=== PATIENT | female | born 1970 | race Caucasian/White ===

== ENCOUNTER 2016-05-03 17:35 | Emergency (ER) | payer OTHER ==
[~2016-05-03] VITALS: Ht 152.4 cm; Wt 100.0 kg
[~2016-05-03 17:35] MED LIST: ADIPEX-P37.5 M1 PO; CIPRO500 MG OR; COZAAR50 MG PO; DIFLUCAN150 MG PO; GLUCOTROL XL2.5 MG PO; IMITREX100 MG PO; IMITREX25 MG PO; INVOKANA300 MG PO; LIPITOR20 MG PO; NITROGLYCER0.4 MG SL; NO MEDICATIONS; PYRIDIUM200 MG OR; TOPAMAX25 MG PO; TRICOR48 MG PO; ULTRAM50 M1 PO; WELLBUTRIN150 M1 PO; XANAX0.25 MG PO; XANAX0.5 MG OR; XANAX1 MG PO
[2016-05-03 19:12] VITALS: BP 126/85
== END 2016-05-03 19:13 | disposition home or self-care (01) | DRG 552 ==
LOC: ED 17:35
DX: M54.31 Sciatica, right side (principal); R25.2 Cramp and spasm

== ENCOUNTER 2017-03-30 09:45 | Observation (INO) | payer OTHER ==
[~2017-03-30] VITALS: Ht 152.4 cm; Wt 94.9 kg
--- NOTE | 2017-03-30 09:45 | NUR ---
PT TO ROOM 12 VIA EMS [facility]. PT REQUESTS TO USE BATHROOM, PT REFUSED WHEELCHAIR AND BEDSIDE COMMODE. PT AMBULATED TO BATHROOM WITH A STEADY GAIT.
--- NOTE | 2017-03-30 10:00 | NUR ---
PT REPORTS SUDDEN ONSET OF MIDSTERNAL CHEST PAIN THAT RADIATES TO THE MID BACK. PT REPORTS DIZZINESS AND NAUSEA WITH THE CHEST PAIN. 0.4 MG SL NITRO AND 324 MG OF ASA GIVEN ENROUTE VIA EMS AND PER PT PAIN IS NOW A 4/10. MONITOR SHOWING NORMAL SINUS RHYTHM AT 78 BPM AT THIS TIME. LS CLEAR AND PT RESTING COMFORTABLY IN STRETCHER. PT HAS HX OF AAA, NO ABD TENDERNESS OR PULSATIONS NOTED TO THE ABD. MD AT BEDSIDE, CALL PETE WITHIN REACH, WILL CONTINUE TO MONITOR.
[2017-03-30 10:25] LABS: HEMOGLOBIN 13.8 g/dl (12.0-16.0); IMMATURE GRANULOCYTES 0.9 % (0.0-1.0); MEAN CELL VOLUME 86.3 fL CALC (80.0-100.0); MEAN CORPUSCULAR HGB 29.1 pG CALC (26.0-32.0); MEAN CORPUSCULAR HGB CONC 33.7 g/L CALC (32.0-36.0); NEUT# 5.55 thou/uL (2.00-7.15); RED BLOOD COUNT 4.75 mill/uL (4.20-5.60); RED CELL DISTRI WIDTH 12.5 % (11.5-15.5)
[2017-03-30 10:28] LABS: URINE BILIRUBIN - DIPSTICK NEGATIVE (NEGATIVE); URINE BLOOD DIPSTICK NEGATIVE (NEGATIVE); URINE COLOR YELLOW; URINE GLUCOSE - DIPSTICK >=1000 mg/dL (NEGATIVE); URINE KETONE NEGATIVE (NEGATIVE); URINE LEUK ESTERASE NEGATIVE (NEGATIVE); URINE NITRITE - DIPSTICK NEGATIVE (Negative); URINE PROTEIN - DIPSTICK NEGATIVE (NEG-TRACE); URINE SPECIFIC GRAVITY 1.015; URINE UROBILINOGEN - DIPSTICK 0.2 E.U./dL (0.2)
[2017-03-30 10:33] LABS: ALBUMIN 4.2 g/dL (3.2-5.0); ALKALINE PHOSPHATASE 95 u/l (38-126); ANION GAP 16 (6-22 (CALC)); BILIRUBIN, TOTAL 0.7 mg/dL (0.0-1.4); BUN 14 mg/dL (7-17); BUN/CREATININE RATIO 23 (12-20 (CALC)); CARBON DIOXIDE 22 mmol/l (22-30); CHLORIDE 107 mmol/l (95-108); CREATININE 0.6 mg/dL (0.5-1.0); GFR > 60 ML/MIN (>=60 (CALC)); GFR FOR AFR.AMER. > 60 ML/MIN (>=60 (CALC)); POTASSIUM 4.1 mmol/l (3.5-5.1); SGOT/AST 28 u/l (14-36); SGPT/ALT 19 u/l (9-52); SODIUM 141 mmol/l (137-146); TOTAL PROTEIN 7.6 g/dL (6.3-8.2)
[2017-03-30 10:34] LABS: URINE CLARITY CLEAR
[2017-03-30 10:44] LABS: MYOGLOBIN 24 ng/mL (0 - 62)
--- NOTE | 2017-03-30 10:48 | NUR ---
PT MEDICATED WITH 2 MG OF MORPHINE FOR 6/10 STABBING CHEST PAIN IN THE MIDSTERNAL AREA. CALL PETE WITHIN REACH, FAMILY AT BEDSIDE.
--- NOTE | 2017-03-30 10:54 | NUR ---
SBAR PRINTED TO FLOOR
--- NOTE | 2017-03-30 10:56 | NUR ---
MD AT BEDSIDE TO DISCUSS RESULTS AND ADMISSION.
--- NOTE | 2017-03-30 11:15 | NUR ---
REPORT CALLED TO CARMEN SHELL ON MS.
[2017-03-30] MEDS ORDERED: VYVANSE70 MG PO (11:18)
[2017-03-30] MEDS ORDERED: TRICOR145 MG PO (11:19)
[2017-03-30] MEDS ORDERED: TRESIBA FL200 UNIT/M SC (11:20)
[2017-03-30] MEDS ORDERED: PROZAC10 MG PO (11:21)
[2017-03-30] MEDS ORDERED: NAPROXEN250 MG PO (11:22)
[2017-03-30] MEDS ORDERED: LOSARTAN POTASS50 MG PO (11:23)
[2017-03-30] MEDS ORDERED: KLOR-CON 1010 MEQ PO (11:25)
[2017-03-30] MEDS ORDERED: LASIX 40 MG40 MG/TAB PO (11:25)
[2017-03-30] MEDS ORDERED: INVOKANA300 MG PO (11:26)
[2017-03-30] MEDS ORDERED: DIFLUCAN150 MG PO (11:27)
--- NOTE | 2017-03-30 11:30 | NUR ---
Admission Note Report Given to: CARMEN SHELL Transported by: X Wheelchair Stretcher Transported with: X Nurse Transporter X Patent IV O2 X Linux System Engineer
--- NOTE | 2017-03-30 11:40 | NUR ---
PT.ARRIVED TO FLOOR AND APPEARS TO BE IN STABLE CONDITION AT THIS TIME. SERENA PAYNE IS IN WITH PT ORIENTING HER TO LIGHTS,ROOM,BED,CALL SYSTEM AND TV. V/S ARE BEING ASSESSED. FAMILY ACCOMPANIED PT TO FLOOR AND ARE AT BEDSIDE.
[2017-03-30 11:49] VITALS: BP 143/84
--- NOTE | 2017-03-30 13:04 | NUR ---
PT.IN BED W/FRIENDS AT BEDSIDE. PT.ASSESSED. LUNG SOUNDS ARE CLEAR, ABD.SOFT AND NON-TENDER, SKIN INTACT, NO EDEMA, REPORTS BM YESTERDAY AND NO PROBLEMS URINATING. DENIES ANY NAUSEA OR VOMITING AT THIS TIME, REPORTS PAIN 3/10 CONSTANT IN LEFT CHEST AND ONCE IN A WHILE SHARP PAIN 7/10 STRAIGHT THRU TO BACK. PT.IS TALKING WITH FRIENDS AND DENIES ANY OTHER NEEDS AT THIS TIME.
--- NOTE | 2017-03-30 15:00 | NUR ---
PT.ARRIVED TO FLOOR VIA ACCOMPANIED BY CARMEN DORADO OF ED. PT.APPEARS TO BE IN STABLE CONDITION AT THIS TIME. V/S ARE BEING [id number] AND PT. ORIENTED TO ROOM,CALL SYSTEM,LIGHTS, BED AND TV. PT.SELF AMUBLATED TO STANDING SCALE AND BED.
[2017-03-30 15:12] LABS: CHOLESTEROL HDL RATIO 6.3 (<4.4 (CALC))
[2017-03-30 15:23] VITALS: BP 111/70
--- NOTE | 2017-03-30 16:54 | NUR ---
Patient felt pain underneath left breast. BINDER ROLLER was informed. C
--- NOTE | 2017-03-30 17:15 | NUR ---
PT.MEDICATED FOR PAIN 04/24 CONSTAND 08/24 SHARP SPIRADIC PAIN UNDER LEFT BREAST IS AT BEDSIDE AT THIS TIME. CALL LIGHT IS W/IN REACH AND PT.ENCOURAGED TO CALL
[2017-03-30 18:30] VITALS: BP 103/68
--- NOTE | 2017-03-30 18:35 | NUR ---
PT.MEDICATED FOR PAIN 08/24.
[2017-03-30 18:40] VITALS: BP 103/68
--- NOTE | 2017-03-30 18:43 | NUR ---
ARMANDO BUSH NOTIFIED OF 08/24 PAIN UNDER LEFT BREAST, MEDICATED W/MORPHINE, XANAX AND EKG ORDERED. RESPIRATORY IS IN WITH PT.AT THIS TIME. BP 103/68,HR73.
--- NOTE | 2017-03-30 19:30 | NUR ---
PATIENT RESTING IN BED AT THIS TIME-AWAKE ALERT AND ORIENTEDX3. PATIENT STATES THAT HER PAIN SCALE IS 2/10 ON PAIN SCALE AFTER RECIEVING MORPHINE AND XANAX ON DAYSHIFT. HEP LOCK TO LEFT AC INTACT-APPEARS HEALTHY WITH GOOD BLOOD RETURN. PATIENT ON CONTACT PRECAUTIONS FOR HISTORY OF MRSA-SWAB ALREADY OBTAINED. SAFETY PRECAUTIONS REINFORCED. CALL LIGHT IN REACH. WILL CONT TO MONITOR.
--- NOTE | 2017-03-31 | NUR ---
PATIENT APPEARS SLEEPING AT THIS TIME POSITIONED ON HER SIDE WITH EYES CLOSED. RESTING IN RECLINER AT THIS TIME. CALL LIGHT IN REACH. WILL CONT TO MONITOR.
[2017-03-31 00:14] VITALS: BP 98/62
[2017-03-31 03:48] VITALS: BP 93/55
--- NOTE | 2017-03-31 04:10 | NUR ---
PATIENT APPEARS SLEEPING AT THIS TIME. CALL LIGHT IN REACH. WILL CONT TO MONITOR.
[2017-03-31 06:55] LABS: HEMATOCRIT 39.2 % (37.0-47.0); HEMOGLOBIN 13.2 g/dl (12.0-16.0); IMMATURE GRANULOCYTES 0.8 % (0.0-1.0); MEAN CELL VOLUME 86.7 fL CALC (80.0-100.0); MEAN CORPUSCULAR HGB 29.2 pG CALC (26.0-32.0); MEAN CORPUSCULAR HGB CONC 33.7 g/L CALC (32.0-36.0); NEUT# 4.73 thou/uL (2.00-7.15); RED BLOOD COUNT 4.52 mill/uL (4.20-5.60); RED CELL DISTRI WIDTH 12.4 % (11.5-15.5)
--- NOTE | 2017-03-31 07:00 | NUR ---
SHIFT CHANGE REPORT FROM TEJ YEE AWAKE ALERT AND ORIENTED, DENIES PAIN AT THIS TIME, TELE MONITOR IN PLACE, CALL PETE IN REACH. SPOUSE AT BEDSIDE.
[2017-03-31 07:16] LABS: ANION GAP 15 (6-22 (CALC)); BUN 18 mg/dL (7-17); BUN/CREATININE RATIO 27 (12-20 (CALC)); CARBON DIOXIDE 24 mmol/l (22-30); CHLORIDE 105 mmol/l (95-108); CREATININE 0.7 mg/dL (0.5-1.0); GFR > 60 ML/MIN (>=60 (CALC)); GFR FOR AFR.AMER. > 60 ML/MIN (>=60 (CALC)); MAGNESIUM 2.1 mg/dL (1.6-2.3); SODIUM 140 mmol/l (137-146)
[2017-03-31 08:58] VITALS: BP 110/62; BP 114/49
[2017-03-31 10:31] VITALS: BP 106/68
--- NOTE | 2017-03-31 11:32 | NUR ---
Discharge instructions given. Patient verbalizes understanding of same. Discharged in good condition via Ambulatory to Home with spouse. All belongings sent with pt.
== END 2017-03-31 11:40 | disposition home or self-care (01) | DRG 313 ==
LOC: ED 09:45 → ED-I 10:40 → ED 11:00 → MS2 11:01
PROVIDERS: Emergency Medicine; Nurse Practitioner Family; ADMIT Internal Medicine; ATTEND Internal Medicine
DX: R07.89 Other chest pain (principal); I10 Essential (primary) hypertension; E11.65 Type 2 diabetes mellitus with hyperglycemia; Z68.41 Body mass index [BMI] 40.0-44.9, adult; F32.9 Major depressive disorder, single episode, unspecified; I71.4 Abdominal aortic aneurysm, without rupture; F41.1 Generalized anxiety disorder; F17.210 Nicotine dependence, cigarettes, uncomplicated; Z91.14 Patient's other noncompliance with medication regimen; Z79.84 Long term (current) use of oral hypoglycemic drugs
CPT/HCPCS: G0378

== ENCOUNTER 2017-10-13 04:59 | Emergency (ER) | payer OTHER ==
[~2017-10-13] VITALS: Ht 157.5 cm; Wt 97.8 kg
[~2017-10-13 04:59] MED LIST changes: +KLOR-CON 1010 MEQ PO; +LASIX 40 MG40 MG/TAB PO; +LOSARTAN POTASS50 MG PO; +NAPROXEN250 MG PO; +PROZAC10 MG PO; +TRESIBA FL200 UNIT/M SC; +TRICOR145 MG PO; +VYVANSE70 MG PO
[2017-10-13] MEDS ORDERED: ATIVAN1 M1 PO (05:10)
[2017-10-13 05:44] VITALS: BP 146/97
== END 2017-10-13 05:46 | disposition home or self-care (01) | DRG 639 ==
LOC: ED 04:59
DX: E11.65 Type 2 diabetes mellitus with hyperglycemia (principal); I10 Essential (primary) hypertension; F32.9 Major depressive disorder, single episode, unspecified; I71.4 Abdominal aortic aneurysm, without rupture; Z85.038 Personal history of other malignant neoplasm of large intestine

== ENCOUNTER 2018-02-21 11:02 | Observation (INO) | payer OTHER ==
[~2018-02-21] VITALS: Ht 152.4 cm; Wt 96.4 kg
[2018-02-21] VITALS (9 sets, daily range): BP systolic 124–171; BP diastolic 82–101
[~2018-02-21 11:02] MED LIST changes: +ATIVAN1 M1 PO
--- NOTE | 2018-02-21 11:05 | NUR ---
PATIENT TO ROOM VIA WHEELCHAIR.
[2018-02-21 11:41] LABS: HEMATOCRIT 38.6 % (37.0-47.0); HEMOGLOBIN 13.4 g/dl (12.0-16.0); IMMATURE GRANULOCYTES 2.8 % (0.0-5.0); MEAN CELL VOLUME 88.5 fL CALC (80.0-100.0); MEAN CORPUSCULAR HGB 30.7 pG CALC (26.0-32.0); MEAN CORPUSCULAR HGB CONC 34.7 g/L CALC (32.0-36.0); NEUT# 4.36 thou/uL (2.00-7.15); RED BLOOD COUNT 4.36 mill/uL (4.20-5.60); RED CELL DISTRI WIDTH 13.9 % (11.5-15.5)
[2018-02-21 11:51] LABS: GFR > 60 ML/MIN (>=60 (CALC)); GFR FOR AFR.AMER. > 60 ML/MIN (>=60 (CALC))
[2018-02-21 12:00] LABS: ANION GAP 15 (6-22 (CALC)); BUN 10 mg/dL (7-17); BUN/CREATININE RATIO 24 (12-20 (CALC)); CARBON DIOXIDE 21 mmol/l (22-30); CHLORIDE 103 mmol/l (95-108); CREATININE 0.4 mg/dL (0.5-1.0); GFR > 60 ML/MIN (>=60 (CALC)); GFR FOR AFR.AMER. > 60 ML/MIN (>=60 (CALC)); POTASSIUM 4.1 mmol/l (3.5-5.1); SODIUM 135 mmol/l (137-146)
--- NOTE | 2018-02-21 12:00 | NUR ---
PT TO RADIOLOGY VIA STRETCHER FOR CT. STABLE CONDITION.
--- NOTE | 2018-02-21 13:30 | NUR ---
PT TAKEN TO ROOM 7 IN ICU OVERFLOW PT, REPORT WAS TO [facility].
[2018-02-21] MEDS ORDERED: GABAPENTIN100 MG PO (13:39)
[2018-02-21] MEDS ORDERED: COMPAZINE5 MG/TAB PO (13:39)
[2018-02-21] MEDS ORDERED: HUMALOG100 MG/ML SC (13:40)
--- NOTE | 2018-02-21 13:55 | NUR ---
PT ADMITTED TO ICU BED 7 MED SURG OVERFLOW TELE, PT ALERT AND ORIENTED, STOOD OFF STRECTHER AND AMBULATED WITH STEADY GAIT TO BED, ADMISSION ASSESSMENT COMPLETED, SEE INTERVENTIONS, BP SLIGHTLY ELEVATED PT STATES SHE HAS HAD A MIGRAINE FOR A FEW DAYS NOW. TELE READING SR RATE IN THE 80'S LUNGS CLEAR WITH NO SHORTNESS OF BREATH OR DISTRESS NOTED, ABD SOFT LAST BM THIS AM, IMPLANTED PORT ACCESSED IN R CHEST WALL SALINE LOCKED AND DRESSING CLEAN DRY AND INTACT, PT STATES SHE HAS HAD HEARTBURN LIKE PAIN FOR 3 DAYS THIS AM IT RADIATED DOWN ARM AND SINCE SHE HAS AN AAA SHE WANTS TO BE CAREFUL, ALSO STATES THAT THE SL NITRO GIVEN TO HER IN ER RESOLVED THE PAIN, ORIENTED TO ROOM AND UNIT, ALL MONITORING EQUIPMENT EXPLAINED PRIOR APPLICATION, CALL PETE WITHIN REACH, WILL CONTINUE TO MONITOR.
--- NOTE | 2018-02-21 15:46 | NUR ---
PT C/O HEADACHE SINCE YESTERDAY. DENIES CP AT THIS TIME. STATES SHE HASN'T "EATEN AT ALL TODAY". TRAY ORDERED FROM [place]. 2 FREJAIMES @BEDSIDE WITH PT. A FRIEND IS LOOKING ALL OVER ROOM CHECKING ROOM FOR CLEANLINESS. ABD SOFT/NONTENDER, ACTIVE BS. DENIES N/V/D. "NORMAL" BM TODAY. STRONG PULSES x4. NSR ON TELE. BARAJAS. EYES PERRLA @4. NO NEURO ABNORMALITIES. BREATHING IS EVEN/UNLABORED, LUNG SOUNDS CLEAR.
--- NOTE | 2018-02-21 15:54 | NUR ---
DR PINK @BEDSIDE ASSESSING PT.
--- NOTE | 2018-02-21 16:01 | NUR ---
2 MORE VISITORS @BEDSIDE. PT SITTING UP IN BED, EATING TRAY FROM [place]. PT STATES SHE HAS A SMALL SORE FROM A SCRATCH ON HER UPPER BACK. BANDAID PLACED ON SORE. NO OTHER NEEDS/CONCERNS AT THIS TIME.
--- NOTE | 2018-02-21 17:27 | NUR ---
PT HAS HER DIABETIC SCANNER WITH HER, REQUEST TO USE IT INSTEAD OF BEING POKED BY ACCUCHECK. PERFORMED ACCUCHECK AT SAME TIME PT SCANNED HER PATCH. PT GOT 241 WITH HER SCANNER, I GOT 243 WITH OUR ACCUCHECK. AGREED TO LET PT SCAN HER PATCH FOR ACCUCHECKS SINCE #S ARE VERY CLOSE. PT GIVEN 4u COVERAGE. PT WILL BE RESPONSIBLE FOR HER SCANNER.
--- NOTE | 2018-02-21 19:40 | NUR ---
ASSESSMENT IS COMPLETED: IV SITE IS FREE FROM REDNESS OR EDEMA. HR IS REG,PULSES ARE STRONG X4, ABD IS SOFT WITH ACTIVE BS. BREATH SOUNDS ARE CLEAR, BILATERALLY. CONTINUE TO OBSERVE AND MONITOR.
--- NOTE | 2018-02-21 23:00 | NUR ---
PT IS RELAXING IN BED WITH NO DISTRESS NOTED. IV SITE IS FREE FROM REDNESS OR EDEMA.
--- NOTE | 2018-02-21 23:41 | NUR ---
PT RELAXING IN BED WITH NO DISTRESS NOTED. IV SITE IS FREE FROM REDNESS OR EDEMA. FAMILY IN THE ROOM CONTINUE TO OSBERVE AND MONITOR,
[2018-02-22 01:38] VITALS: BP 127/76
--- NOTE | 2018-02-22 01:48 | NUR ---
PT IS RESTING IN BED WITH NO DISTRESS NOTED. IV SITE IS FREE FROM REDNESS OR EDEMA.
--- NOTE | 2018-02-22 02:38 | NUR ---
PT IS RESTING WITH EYES CLOSED. NO DISTRESS NOTED. FAMILY IN AND OUT OF THE ROOM.,
--- NOTE | 2018-02-22 06:20 | NUR ---
PT REQUESTING DISC TO TAKE TO [facility]. CONTINUE TO OBSERVE AND MONITOR C/O HEADACHE THIS AM. BS ACCORDING TO MONITOR ON ARM IS 359 WAITING ON LAB RESULT.
[2018-02-22 06:22] LABS: ALKALINE PHOSPHATASE 134 u/l (38-126); AMYLASE 36 u/l (30-110); ANION GAP 13 (6-22 (CALC)); BILIRUBIN, TOTAL 0.4 mg/dL (0.0-1.4); BUN 13 mg/dL (7-17); BUN/CREATININE RATIO 26 (12-20 (CALC)); CARBON DIOXIDE 22 mmol/l (22-30); CHLORIDE 104 mmol/l (95-108); CREATININE 0.5 mg/dL (0.5-1.0); GFR > 60 ML/MIN (>=60 (CALC)); GFR FOR AFR.AMER. > 60 ML/MIN (>=60 (CALC)); LIPASE 102 u/l (23-300); MAGNESIUM 1.7 mg/dL (1.6-2.3); POTASSIUM 4.5 mmol/l (3.5-5.1); SGOT/AST 30 u/l (14-36); SODIUM 134 mmol/l (137-146); TOTAL PROTEIN 6.3 g/dL (6.3-8.2)
[2018-02-22 06:24] VITALS: BP 138/70
[2018-02-22 06:32] LABS: HEMATOCRIT 35.6 % (37.0-47.0); HEMOGLOBIN 12.4 g/dl (12.0-16.0); IMMATURE GRANULOCYTES 4.5 % (0.0-5.0); MEAN CELL VOLUME 90.1 fL CALC (80.0-100.0); MEAN CORPUSCULAR HGB 31.4 pG CALC (26.0-32.0); MEAN CORPUSCULAR HGB CONC 34.8 g/L CALC (32.0-36.0); NEUT# 5.07 thou/uL (2.00-7.15); RED BLOOD COUNT 3.95 mill/uL (4.20-5.60); RED CELL DISTRI WIDTH 14.6 % (11.5-15.5)
--- NOTE | 2018-02-22 06:50 | NUR ---
REPORT RECVD FROM SKYLER FIGUEROA AT START OF SHIFT.
[2018-02-22 07:00] VITALS: BP 138/83
--- NOTE | 2018-02-22 07:24 | NUR ---
PT SLEEPING IN BED, SLEEPING IN RECLINER. NO S/S OF DISTRESS.
--- NOTE | 2018-02-22 08:09 | NUR ---
PNEUMOCOCCAL VACCINE ASSESSMENT ; PATIENT WAS GIVEN PPSV23 IN 2015 AND IS 47 YEARS OLD SHE WILL NOT REQUIRE PCV13 UNTIL SHE TURNS 65 YEARS OLD.
--- NOTE | 2018-02-22 08:30 | NUR ---
RADIOLOGY GAVE PT CD OF TESTS TO TAKE TO HER PCP. PT SIGNED WAIVER.
--- NOTE | 2018-02-22 08:35 | NUR ---
PT C/O ABOUT CARBS ON MEAL TRAYS WHEN PT IS A DIABETIC. CONCERNED ABOUT HIGH BGL. SHE IS NOT TAKING ONE OF HER DM MEDS WHILE IN HOSPITAL. WILL DISCUSS WITH MD WHEN HE ROUNDS. PT C/O NOISE IN ROOM ALL NIGHT D/T ROWDY NEIGHBOR. WORK ORDER PLACED FOR DOOR THAT WILL NOT CLOSE. PER MAINTENANCE, NEW TRACTS ORDERED. PT C/O HOT ROOM. FAN PLACED IN ROOM. 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 REQUESTS COFFEE. FRESH POT MADE. GIVEN ACCESS TO NOURISHMENT ROOM.
[2018-02-22 09:00] VITALS: BP 140/88
--- NOTE | 2018-02-22 10:10 | NUR ---
DR PINK @BEDSIDE, EXAMINING PT & DISCUSSING POC. EXAMINED PTS BUTTOCKS, SMALL RED AREA, SUSPECT OF STARTING ABCESS TO LEFT, IS TENDER TO TOUCH AND PINK/RAW AREA AROUND ANUS. MD EDUCATED ON MEDICATIONS TO HELP.
[2018-02-22] MEDS ORDERED: KEFLEX500 M1 PO (10:27)
--- NOTE | 2018-02-22 10:33 | NUR ---
HUA, UNIT COORDINATOR, @BEDSIDE DISCUSSING DIET/CARBS WITH PT/.
--- NOTE | 2018-02-22 10:55 | NUR ---
PT REQUESTED A NOTE TO RETURN TO WORK ON 02/28/18. COPY MADE FOR FILE.
[2018-02-22 11:00] VITALS: BP 141/86
--- NOTE | 2018-02-22 11:00 | NUR ---
PT UP TO BSC FOR BM UNASSISTED.
--- NOTE | 2018-02-22 11:55 | NUR ---
PT SITTING UP IN BED, EATING LUNCH. DC PENDING HUSBANDS RETURN.
--- NOTE | 2018-02-22 12:12 | NUR ---
PT/ EDUCATED ON DC INSTRUCTIONS INCLUDING F/UP CARE WITH ESCROW REPRESENTATIVE AND NEW MEDICATION SENT TO [employer]. CONCERNED ABOUT RUNNING OUT OF VIT[employer] OINTMENT, PRINTED OUT PLACES WHERE PT COULD GET MEDICINE OTC. NO OTHER QUESTIONS/CONCERNS.
--- NOTE | 2018-02-22 12:19 | NUR ---
Discharge instructions given. Patient verbalizes understanding of same. Discharged in stable condition via Ambulatory to Home with family. All belongings sent with pt. Pt refused wheelchair stating she wanted to walk, "it feels good to be oob", all belongings with pt.
== END 2018-02-22 12:19 | disposition home or self-care (01) | DRG 313 ==
LOC: ED 11:02 → ED-I 13:05 → ED 13:15 → ICU 13:16
PROVIDERS: Family Medicine; ADMIT Internal Medicine Nephrology; ATTEND Internal Medicine Nephrology
DX: R07.89 Other chest pain (principal); C18.9 Malignant neoplasm of colon, unspecified; Z68.41 Body mass index [BMI] 40.0-44.9, adult; I10 Essential (primary) hypertension; E11.40 Type 2 diabetes mellitus with diabetic neuropathy, unspecified; I71.2 Thoracic aortic aneurysm, without rupture; E78.5 Hyperlipidemia, unspecified; F41.8 Other specified anxiety disorders; E66.9 Obesity, unspecified; G89.29 Other chronic pain; R19.7 Diarrhea, unspecified; R22.2 Localized swelling, mass and lump, trunk; Z23 Encounter for immunization; Z90.49 Acquired absence of other specified parts of digestive tract; Z79.899 Other long term (current) drug therapy; Z79.1 Long term (current) use of non-steroidal anti-inflammatories (NSAID)
CPT/HCPCS: J1650

== ENCOUNTER → 2018-03-30 | Outpatient (REF) | payer OTHER ==
[~2018-03-30] MED LIST changes: +COMPAZINE5 MG/TAB PO; +GABAPENTIN100 MG PO; +HUMALOG100 MG/ML SC; +KEFLEX500 M1 PO
== END | disposition home or self-care (01) | DRG 311 ==
LOC: STRESS 11:04 → NUCMED 14:15
PROVIDERS: ATTEND Internal Medicine
DX: I20.9 Angina pectoris, unspecified (principal); E11.65 Type 2 diabetes mellitus with hyperglycemia; I10 Essential (primary) hypertension
CPT/HCPCS: A9502; J0706; J2785

== ENCOUNTER → 2018-04-05 | Outpatient (REF) | END | disposition home or self-care (01) | DRG 310 | LOC: LAB 12:35 | PROVIDERS: ATTEND Internal Medicine | DX: I48.2 Chronic atrial fibrillation (principal); I20.8 Other forms of angina pectoris ==

== ENCOUNTER 2018-07-26 10:10 | Emergency (ER) | payer OTHER ==
[~2018-07-26] VITALS: Ht 160 cm; Wt 80.0 kg
[2018-07-26 10:30] LABS: GFR > 60 ML/MIN (>=60 (CALC)); GFR FOR AFR.AMER. > 60 ML/MIN (>=60 (CALC))
[2018-07-26 10:34] LABS: HEMATOCRIT 39.5 % (37.0-47.0); HEMOGLOBIN 13.2 g/dl (12.0-16.0); IMMATURE GRANULOCYTES 1.7 % (0.0-5.0); MEAN CELL VOLUME 86.1 fL CALC (80.0-100.0); MEAN CORPUSCULAR HGB 28.8 pG CALC (26.0-32.0); MEAN CORPUSCULAR HGB CONC 33.4 g/L CALC (32.0-36.0); NEUT# 6.39 thou/uL (2.00-7.15); RED BLOOD COUNT 4.59 mill/uL (4.20-5.60); RED CELL DISTRI WIDTH 13.1 % (11.5-15.5)
[2018-07-26 10:50] LABS: INTERNATIONAL NORMALIZED RATIO 0.9 RATIO (0.7-1.3); PROTHROMBIN TIME 9.5 SECONDS (9.0-12.5)
[2018-07-26 10:52] LABS: ALKALINE PHOSPHATASE 126 u/l (38-126); ANION GAP 14 (6-22 (CALC)); BILIRUBIN, TOTAL 0.5 mg/dL (0.0-1.4); BUN 11 mg/dL (7-17); BUN/CREATININE RATIO 25 (12-20 (CALC)); CARBON DIOXIDE 22 mmol/l (22-30); CHLORIDE 106 mmol/l (95-108); CREATININE 0.4 mg/dL (0.5-1.0); GFR > 60 ML/MIN (>=60 (CALC)); GFR FOR AFR.AMER. > 60 ML/MIN (>=60 (CALC)); LIPASE 95 u/l (23-300); POTASSIUM 4.2 mmol/l (3.5-5.1); SGOT/AST 44 u/l (14-36); SODIUM 137 mmol/l (137-146); TOTAL PROTEIN 7.4 g/dL (6.3-8.2)
[2018-07-26] MEDS ORDERED: FENOFIBRATE145 MG PO (11:20)
[2018-07-26] MEDS ORDERED: JARDIANCE25 MG PO (11:20)
[2018-07-26] MEDS ORDERED: LOSARTAN POT50 MG PO (11:21)
[2018-07-26] MEDS ORDERED: FUROSEMIDE20 MG PO (11:24)
[2018-07-26] MEDS ORDERED: KLOR-CON M2020 MEQ PO (11:25)
[2018-07-26] MEDS ORDERED: L-CARNITINE250 M1 PO (11:26)
[2018-07-26] MEDS ORDERED: B COMPLE2 PO (11:26)
[2018-07-26] MEDS ORDERED: LOPRESSOR25 M1 PO (11:26)
[2018-07-26] MEDS ORDERED: ASPIRIN 8181 MG PO (11:27)
[2018-07-26 12:37] LABS: URINE BILIRUBIN - DIPSTICK NEGATIVE (NEGATIVE); URINE BLOOD DIPSTICK NEGATIVE (NEGATIVE); URINE COLOR YELLOW; URINE GLUCOSE - DIPSTICK >=1000 mg/dL (NEGATIVE); URINE KETONE NEGATIVE (NEGATIVE); URINE LEUK ESTERASE NEGATIVE (NEGATIVE); URINE NITRITE - DIPSTICK NEGATIVE (Negative); URINE PROTEIN - DIPSTICK NEGATIVE (NEG-TRACE); URINE SPECIFIC GRAVITY <=1.005; URINE UROBILINOGEN - DIPSTICK 0.2 E.U./dL (0.2)
[2018-07-26 13:54] VITALS: BP 165/79
== END 2018-07-26 14:00 | disposition home or self-care (01) | DRG 103 ==
LOC: ED 10:10
PROVIDERS: Family Medicine
DX: R51 Headache (principal); F41.9 Anxiety disorder, unspecified; E11.9 Type 2 diabetes mellitus without complications; I10 Essential (primary) hypertension; I71.4 Abdominal aortic aneurysm, without rupture; Z79.4 Long term (current) use of insulin

== ENCOUNTER 2019-06-22 | Emergency (ER) | payer OTHER ==
[~2019-06-22] MED LIST changes: +ASPIRIN 8181 MG PO; +B COMPLE2 PO; +FENOFIBRATE145 MG PO; +FUROSEMIDE20 MG PO; +JARDIANCE25 MG PO; +KLOR-CON M2020 MEQ PO; +L-CARNITINE250 M1 PO; +LOPRESSOR25 M1 PO; +LOSARTAN POT50 MG PO
[2019-06-22] MEDS ORDERED: TOUJEO SOL300 UNIT/M IN (15:34)
[2019-06-22] MEDS ORDERED: MIRALAX3350 N1 PO (15:35)
[2019-06-22] MEDS ORDERED: OMEGA 31000 MG PO (15:35)
[2019-06-22 15:41] LABS: HEMATOCRIT 39.5 % (37.0-47.0); HEMOGLOBIN 13.5 g/dl (12.0-16.0); IMMATURE GRANULOCYTES 0.5 % (0.0-5.0); MEAN CELL VOLUME 84.9 fL CALC (80.0-100.0); MEAN CORPUSCULAR HGB CONC 34.2 g/dL CAL (32.0-36.0); NEUT# 5.9 thou/uL (2.00-7.15); RED BLOOD COUNT 4.65 mill/uL (4.20-5.60); RED CELL DISTRI WIDTH 13.1 % (11.5-15.5)
[2019-06-22 16:00] LABS: ALBUMIN 4.2 g/dL (3.2-5.0); ALKALINE PHOSPHATASE 116 u/l (38-126); ANION GAP 11 (6-22 (CALC)); BILIRUBIN, TOTAL 0.4 mg/dL (0.0-1.4); BUN 17 mg/dL (7-17); BUN/CREATININE RATIO 25 (12-20 (CALC)); CARBON DIOXIDE 24 mmol/l (22-30); CHLORIDE 104 mmol/l (95-108); CREATININE 0.7 mg/dL (0.5-1.0); GFR > 60 ML/MIN (>=60 (CALC)); GFR FOR AFR.AMER. > 60 ML/MIN (>=60 (CALC)); LIPASE 98 u/l (23-300); POTASSIUM 4.4 mmol/l (3.5-5.1); SGOT/AST 19 u/l (14-36); SODIUM 135 mmol/l (137-146); TOTAL PROTEIN 7.9 g/dL (6.3-8.2)
[2019-06-22 16:19] LABS: URINE BILIRUBIN - DIPSTICK NEGATIVE (NEGATIVE); URINE BLOOD DIPSTICK NEGATIVE (NEGATIVE); URINE COLOR YELLOW; URINE GLUCOSE - DIPSTICK 100 mg/dL (NEGATIVE); URINE KETONE NEGATIVE (NEGATIVE); URINE LEUK ESTERASE NEGATIVE (NEGATIVE); URINE NITRITE - DIPSTICK NEGATIVE (Negative); URINE PH 7.5 (4.5-8.0); URINE PROTEIN - DIPSTICK NEGATIVE (NEG-TRACE); URINE UROBILINOGEN - DIPSTICK 0.2 E.U./dL (0.2)
== END 2019-06-22 17:10 | disposition home or self-care (01) | DRG 392 ==
PROVIDERS: Family Medicine
DX: R10.12 Left upper quadrant pain (principal); E11.9 Type 2 diabetes mellitus without complications; I10 Essential (primary) hypertension; Z79.4 Long term (current) use of insulin
CPT/HCPCS: Q9967

== ENCOUNTER 2019-08-23 17:40 | Emergency (ER) | payer OTHER ==
[~2019-08-23] VITALS: Ht 160 cm; Wt 80.0 kg
[~2019-08-23 17:40] MED LIST changes: +MIRALAX3350 N1 PO; +OMEGA 31000 MG PO; +TOUJEO SOL300 UNIT/M IN
[2019-08-23 18:36] LABS: HEMATOCRIT 41.7 % (37.0-47.0); HEMOGLOBIN 15.8 g/dl (12.0-16.0); IMMATURE GRANULOCYTES 1.1 % (0.0-5.0); MEAN CELL VOLUME 82.6 fL CALC (80.0-100.0); MEAN CORPUSCULAR HGB 31.3 pG CALC (26.0-32.0); MEAN CORPUSCULAR HGB CONC 37.9 g/dL CAL (32.0-36.0); NEUT# 6.19 thou/uL (2.00-7.15); RED BLOOD COUNT 5.05 mill/uL (4.20-5.60)
[2019-08-23 18:54] LABS: ALBUMIN 4.3 g/dL (3.2-5.0); ALKALINE PHOSPHATASE 156 u/l (38-126); ANION GAP 14 (6-22 (CALC)); BUN 10 mg/dL (7-17); BUN/CREATININE RATIO 26 (12-20 (CALC)); CARBON DIOXIDE 24 mmol/l (22-30); CHLORIDE 100 mmol/l (95-108); CREATININE 0.4 mg/dL (0.5-1.0); GFR > 60 ML/MIN (>=60 (CALC)); GFR FOR AFR.AMER. > 60 ML/MIN (>=60 (CALC)); HDL CHOLESTEROL 16 mg/dL (>=40); LIPASE 92 u/l (23-300); POTASSIUM 4.5 mmol/l (3.5-5.1); SGOT/AST 29 u/l (14-36); SODIUM 133 mmol/l (137-146); TOTAL CHOLESTEROL 248 mg/dl (0-199); TOTAL PROTEIN 8.7 g/dL (6.3-8.2)
[2019-08-23 19:06] LABS: BILIRUBIN, TOTAL 0.8 mg/dL (0.0-1.4)
[2019-08-23 19:07] LABS: CALCULATED LDLCHOLESTEROL 127 mg/dL (62-129 (CALC)); CHOLESTEROL HDL RATIO 15.1 (<4.4 (CALC)); TRIGLYCERIDES REFLEX TO dLDL > 525 mg/dl (30-149); VLDL CHOLESTROL 105 mg/dl (1-41 (CALC))
[2019-08-23 19:37] LABS: URINE BILIRUBIN - DIPSTICK NEGATIVE (NEGATIVE); URINE BLOOD DIPSTICK NEGATIVE (NEGATIVE); URINE COLOR YELLOW; URINE GLUCOSE - DIPSTICK >=1000 mg/dL (NEGATIVE); URINE KETONE 15 mg/dL (NEGATIVE); URINE LEUK ESTERASE NEGATIVE (NEGATIVE); URINE NITRITE - DIPSTICK NEGATIVE (Negative); URINE PROTEIN - DIPSTICK NEGATIVE (NEG-TRACE); URINE SPECIFIC GRAVITY 1.025; URINE UROBILINOGEN - DIPSTICK 0.2 E.U./dL (0.2)
[2019-08-23] MEDS ORDERED: PREVACID30 M3 PO ×2 (20:41)
[2019-08-23 20:55] VITALS: BP 140/70
== END 2019-08-23 20:55 | disposition home or self-care (01) | DRG 440 ==
LOC: ED 17:40
PROVIDERS: Family Medicine
DX: K85.90 Acute pancreatitis without necrosis or infection, unspecified (principal); E11.65 Type 2 diabetes mellitus with hyperglycemia; E78.5 Hyperlipidemia, unspecified; I10 Essential (primary) hypertension; Z85.038 Personal history of other malignant neoplasm of large intestine; Z79.4 Long term (current) use of insulin; Z92.21 Personal history of antineoplastic chemotherapy

== ENCOUNTER 2019-09-30 01:52 | Inpatient (IN) | payer OTHER ==
[2019-09-30] VITALS (9 sets, daily range): BP systolic 123–196; BP diastolic 53–96
[~2019-09-30] VITALS: Ht 152.4 cm; Wt 97.5 kg
[~2019-09-30 01:52] MED LIST changes: +PREVACID30 M3 PO
[2019-09-30 02:22] LABS: URINE BILIRUBIN - DIPSTICK NEGATIVE (NEGATIVE); URINE BLOOD DIPSTICK TRACE-INTACT (NEGATIVE); URINE COLOR YELLOW; URINE GLUCOSE - DIPSTICK 250 mg/dL (NEGATIVE); URINE KETONE TRACE mg/dL (NEGATIVE); URINE LEUK ESTERASE NEGATIVE (NEGATIVE); URINE NITRITE - DIPSTICK NEGATIVE (Negative); URINE PH 7.5 (4.5-8.0); URINE PROTEIN - DIPSTICK >=300 mg/dL (NEG-TRACE); URINE UROBILINOGEN - DIPSTICK 0.2 E.U./dL (0.2)
[2019-09-30 02:25] LABS: IMMATURE GRANULOCYTES 1.1 % (0.0-5.0); MEAN CELL VOLUME 82.7 fL CALC (80.0-100.0); NEUT# 8.68 thou/uL (2.00-7.15); RED BLOOD COUNT 4.96 mill/uL (4.20-5.60); RED CELL DISTRI WIDTH 13.2 % (11.5-15.5)
[2019-09-30 02:34] LABS: URINE RBC 0-2 RBC/hpf (0-5); URINE SQUAMOUS EPITHELIAL CELL FEW EPI/hpf (0-FEW)
[2019-09-30 02:36] LABS: AMYLASE 303 u/l (30-110); BILIRUBIN, TOTAL 0.7 mg/dL (0.0-1.4); BUN 11 mg/dL (7-17); BUN/CREATININE RATIO 20 (12-20 (CALC)); CHLORIDE 100 mmol/l (95-108); CREATININE 0.5 mg/dL (0.5-1.0); GFR > 60 ML/MIN (>=60 (CALC)); GFR FOR AFR.AMER. > 60 ML/MIN (>=60 (CALC)); POTASSIUM 4.2 mmol/l (3.5-5.1); SODIUM 130 mmol/l (137-146); TOTAL PROTEIN 7.6 g/dL (6.3-8.2)
[2019-09-30 02:41] LABS: HEMOGLOBIN 23.8 g/dl (12.0-16.0)
[2019-09-30 02:52] LABS: TOTAL CHOLESTEROL > 650 mg/dl (0-199); TRIGLYCERIDES REFLEX TO dLDL > 1575 mg/dl (30-149); VLDL CHOLESTROL 315 mg/dl (1-41 (CALC))
[2019-09-30 02:57] LABS: ALKALINE PHOSPHATASE 240 u/l (38-126); ANION GAP 17 (6-22 (CALC)); CARBON DIOXIDE 17 mmol/l (22-30); LIPASE 16813 u/l (23-300); SGOT/AST 60 u/l (14-36)
[2019-09-30 02:59] LABS: CALCULATED LDLCHOLESTEROL 321 mg/dL (62-129 (CALC)); CHOLESTEROL HDL RATIO 46.4 (<4.4 (CALC)); HDL CHOLESTEROL 14 mg/dL (>=40)
[2019-09-30 18:43] LABS: ANION GAP 13 (6-22 (CALC)); BUN 4 mg/dL (7-17); BUN/CREATININE RATIO 12 (12-20 (CALC)); CARBON DIOXIDE 15 mmol/l (22-30); CHLORIDE 104 mmol/l (95-108); CREATININE 0.4 mg/dL (0.5-1.0); GFR > 60 ML/MIN (>=60 (CALC)); GFR FOR AFR.AMER. > 60 ML/MIN (>=60 (CALC)); POTASSIUM 3.4 mmol/l (3.5-5.1); SODIUM 129 mmol/l (137-146)
[2019-10-01] VITALS (8 sets, daily range): BP systolic 104–141; BP diastolic 57–84
[2019-10-01 00:52] LABS: ANION GAP 10 (6-22 (CALC)); BUN 4 mg/dL (7-17); BUN/CREATININE RATIO 9 (12-20 (CALC)); CARBON DIOXIDE 18 mmol/l (22-30); CHLORIDE 105 mmol/l (95-108); CREATININE 0.4 mg/dL (0.5-1.0); GFR > 60 ML/MIN (>=60 (CALC)); GFR FOR AFR.AMER. > 60 ML/MIN (>=60 (CALC)); POTASSIUM 3.2 mmol/l (3.5-5.1); SODIUM 131 mmol/l (137-146)
[2019-10-01 05:23] LABS: HEMATOCRIT 37.2 % (37.0-47.0); IMMATURE GRANULOCYTES 1.4 % (0.0-5.0); MEAN CELL VOLUME 83.2 fL CALC (80.0-100.0); MEAN CORPUSCULAR HGB 32.2 pG CALC (26.0-32.0); MEAN CORPUSCULAR HGB CONC 38.7 g/dL CAL (32.0-36.0); NEUT# 15.53 thou/uL (2.00-7.15); RED BLOOD COUNT 4.47 mill/uL (4.20-5.60); RED CELL DISTRI WIDTH 13.6 % (11.5-15.5)
[2019-10-01 05:45] LABS: ALBUMIN 2.7 g/dL (3.2-5.0); ALKALINE PHOSPHATASE 122 u/l (38-126); AMYLASE 161 u/l (30-110); ANION GAP 8 (6-22 (CALC)); BILIRUBIN, TOTAL 0.8 mg/dL (0.0-1.4); BUN 4 mg/dL (7-17); BUN/CREATININE RATIO 9 (12-20 (CALC)); CARBON DIOXIDE 20 mmol/l (22-30); CHLORIDE 105 mmol/l (95-108); CREATININE 0.5 mg/dL (0.5-1.0); GFR > 60 ML/MIN (>=60 (CALC)); GFR FOR AFR.AMER. > 60 ML/MIN (>=60 (CALC)); HDL CHOLESTEROL 13 mg/dL (>=40); LIPASE 839 u/l (23-300); POTASSIUM 3.3 mmol/l (3.5-5.1); SGOT/AST 24 u/l (14-36); SODIUM 130 mmol/l (137-146)
[2019-10-01 06:03] LABS: HEMOGLOBIN 14.4 g/dl (12.0-16.0)
[2019-10-01 06:42] LABS: CHOLESTEROL HDL RATIO 18.8 (<4.4 (CALC)); TOTAL CHOLESTEROL 244 mg/dl (0-199); TOTAL PROTEIN 5.8 g/dL (6.3-8.2); TOTAL TRIGLYCERIDES > 1575 mg/dl (30-149); VLDL CHOLESTROL 315 mg/dl (1-41 (CALC))
[2019-10-01 12:40] LABS: ANION GAP 8 (6-22 (CALC)); BUN 3 mg/dL (7-17); BUN/CREATININE RATIO 7 (12-20 (CALC)); CARBON DIOXIDE 21 mmol/l (22-30); CHLORIDE 107 mmol/l (95-108); CREATININE 0.4 mg/dL (0.5-1.0); GFR > 60 ML/MIN (>=60 (CALC)); GFR FOR AFR.AMER. > 60 ML/MIN (>=60 (CALC)); POTASSIUM 3.4 mmol/l (3.5-5.1); SODIUM 133 mmol/l (137-146)
[2019-10-01 18:46] LABS: BUN 3 mg/dL (7-17); BUN/CREATININE RATIO 7 (12-20 (CALC)); CHLORIDE 111 mmol/l (95-108); CREATININE 0.4 mg/dL (0.5-1.0); GFR > 60 ML/MIN (>=60 (CALC)); GFR FOR AFR.AMER. > 60 ML/MIN (>=60 (CALC)); SODIUM 132 mmol/l (137-146)
[2019-10-01 18:52] LABS: ANION GAP 9 (6-22 (CALC)); CARBON DIOXIDE 16 mmol/l (22-30); POTASSIUM 4.1 mmol/l (3.5-5.1)
[2019-10-02] VITALS (19 sets, daily range): BP systolic 96–134; BP diastolic 52–86
[2019-10-02 04:47] LABS: HEMATOCRIT 35.2 % (37.0-47.0); IMMATURE GRANULOCYTES 1.3 % (0.0-5.0); MEAN CELL VOLUME 84.6 fL CALC (80.0-100.0); MEAN CORPUSCULAR HGB 27.9 pG CALC (26.0-32.0); NEUT# 10.72 thou/uL (2.00-7.15); RED BLOOD COUNT 4.16 mill/uL (4.20-5.60); RED CELL DISTRI WIDTH 14.4 % (11.5-15.5)
[2019-10-02 04:51] LABS: HEMOGLOBIN 11.6 g/dl (12.0-16.0)
[2019-10-02 05:05] LABS: CHOLESTEROL HDL RATIO 11.4 (<4.4 (CALC)); HDL CHOLESTEROL 20 mg/dL (>=40); TOTAL CHOLESTEROL 231 mg/dl (0-199)
[2019-10-02 05:12] LABS: VLDL CHOLESTROL 159 mg/dl (1-41 (CALC))
[2019-10-02 05:31] LABS: TOTAL TRIGLYCERIDES 796 mg/dl (30-149)
[2019-10-03] VITALS (21 sets, daily range): BP systolic 96–139; BP diastolic 58–84
[2019-10-03 08:07] LABS: HEMATOCRIT 32.2 % (37.0-47.0); HEMOGLOBIN 10.3 g/dl (12.0-16.0); IMMATURE GRANULOCYTES 0.8 % (0.0-5.0); MEAN CELL VOLUME 85.4 fL CALC (80.0-100.0); MEAN CORPUSCULAR HGB 27.3 pG CALC (26.0-32.0); NEUT# 6.48 thou/uL (2.00-7.15); RED BLOOD COUNT 3.77 mill/uL (4.20-5.60); RED CELL DISTRI WIDTH 14.5 % (11.5-15.5)
[2019-10-03 08:22] LABS: AMYLASE < 30 u/l (30-110); LIPASE 95 u/l (23-300)
[2019-10-03 08:26] LABS: ALBUMIN 2.5 g/dL (3.2-5.0); ALKALINE PHOSPHATASE 113 u/l (38-126); ANION GAP 8 (6-22 (CALC)); BILIRUBIN, TOTAL 0.9 mg/dL (0.0-1.4); BUN 5 mg/dL (7-17); BUN/CREATININE RATIO 13 (12-20 (CALC)); CHLORIDE 105 mmol/l (95-108); CREATININE 0.4 mg/dL (0.5-1.0); GFR > 60 ML/MIN (>=60 (CALC)); GFR FOR AFR.AMER. > 60 ML/MIN (>=60 (CALC)); POTASSIUM 3.3 mmol/l (3.5-5.1); SGOT/AST 37 u/l (14-36); SODIUM 133 mmol/l (137-146); TOTAL PROTEIN 5.2 g/dL (6.3-8.2)
[2019-10-03 08:27] LABS: CARBON DIOXIDE 23 mmol/l (22-30)
[2019-10-04] VITALS: BP 133/82
[2019-10-04 02:00] VITALS: BP 126/78
[2019-10-04 05:16] LABS: HEMATOCRIT 32.9 % (37.0-47.0); HEMOGLOBIN 10.3 g/dl (12.0-16.0); IMMATURE GRANULOCYTES 1.1 % (0.0-5.0); MEAN CELL VOLUME 86.4 fL CALC (80.0-100.0); MEAN CORPUSCULAR HGB CONC 31.3 g/dL CAL (32.0-36.0); NEUT# 8.13 thou/uL (2.00-7.15); RED BLOOD COUNT 3.81 mill/uL (4.20-5.60); RED CELL DISTRI WIDTH 14.6 % (11.5-15.5)
[2019-10-04 05:33] LABS: ALBUMIN 2.7 g/dL (3.2-5.0); ALKALINE PHOSPHATASE 127 u/l (38-126); BUN 14 mg/dL (7-17); BUN/CREATININE RATIO 32 (12-20 (CALC)); CALCULATED LDLCHOLESTEROL 187 mg/dL (62-129 (CALC)); CARBON DIOXIDE 22 mmol/l (22-30); CHLORIDE 105 mmol/l (95-108); CHOLESTEROL HDL RATIO 12.1 (<4.4 (CALC)); CREATININE 0.5 mg/dL (0.5-1.0); GFR > 60 ML/MIN (>=60 (CALC)); GFR FOR AFR.AMER. > 60 ML/MIN (>=60 (CALC)); HDL CHOLESTEROL 24 mg/dL (>=40); SGOT/AST 32 u/l (14-36); SODIUM 134 mmol/l (137-146); TOTAL CHOLESTEROL 289 mg/dl (0-199); TOTAL PROTEIN 5.5 g/dL (6.3-8.2); TOTAL TRIGLYCERIDES 389 mg/dl (30-149); VLDL CHOLESTROL 78 mg/dl (1-41 (CALC))
[2019-10-04 05:34] LABS: ANION GAP 11 (6-22 (CALC)); BILIRUBIN, TOTAL 0.5 mg/dL (0.0-1.4); POTASSIUM 4.2 mmol/l (3.5-5.1)
[2019-10-04 08:00] VITALS: BP 120/68
[2019-10-04 18:36] VITALS: BP 123/89
[2019-10-04 19:15] VITALS: BP 125/74
[2019-10-05 03:52] VITALS: BP 128/81
[2019-10-05 08:00] VITALS: BP 163/89
[2019-10-05 08:09] VITALS: BP 163/89
[2019-10-05] MEDS ORDERED: TOUJEO SOL300 UNIT/M SC (12:33)
[2019-10-05] MEDS ORDERED: ZOFRAN4 MG/TAB PO (12:33)
[2019-10-05] MEDS ORDERED: LEVAQUIN750 MG PO (12:33)
== END 2019-10-05 14:37 | disposition home or self-care (01) | DRG 418 ==
LOC: ED 01:52 → ED-I 03:21 → ED 03:42 → ED-I 03:43 → MS2 03:57 → ICU 14:51 → MS2 14:51 → ICU 16:00 → MS2 10-04 10:56
PROVIDERS: Family Medicine; ADMIT Internal Medicine; ATTEND Internal Medicine
PROC: 0FT44ZZ Resection of Gallbladder, Percutaneous Endoscopic Approach (ICD-10-PCS; principal; 2019-10-03)
DX: K85.90 Acute pancreatitis without necrosis or infection, unspecified (principal); K80.00 Calculus of gallbladder with acute cholecystitis without obstruction; J81.1 Chronic pulmonary edema; E11.65 Type 2 diabetes mellitus with hyperglycemia; I10 Essential (primary) hypertension; E78.1 Pure hyperglyceridemia; E78.5 Hyperlipidemia, unspecified; I71.4 Abdominal aortic aneurysm, without rupture; F41.1 Generalized anxiety disorder; K59.03 Drug induced constipation; T40.2X5A Adverse effect of other opioids, initial encounter; E87.6 Hypokalemia; F32.9 Major depressive disorder, single episode, unspecified; T38.3X6A Underdosing of insulin and oral hypoglycemic [antidiabetic] drugs, initial encounter; T46.6X6A Underdosing of antihyperlipidemic and antiarteriosclerotic drugs, initial encounter; Z91.120 Patient's intentional underdosing of medication regimen due to financial hardship; Z85.038 Personal history of other malignant neoplasm of large intestine; Z79.4 Long term (current) use of insulin; Z20.828 Contact with and (suspected) exposure to other viral communicable diseases
CPT/HCPCS: J1100; J1650; J2710; Q9967; S0164

== ENCOUNTER 2020-02-14 10:04 | Emergency (ER) | payer OTHER ==
[~2020-02-14] VITALS: Ht 154.9 cm; Wt 100.0 kg
[~2020-02-14 10:04] MED LIST changes: +LEVAQUIN750 MG PO; +TOUJEO SOL300 UNIT/M SC; +ZOFRAN4 MG/TAB PO
[2020-02-14] MEDS ORDERED: HUMULIN N100 UNIT/M SC (10:45)
[2020-02-14] MEDS ORDERED: WELLBUTRIN150 M1 PO (10:48)
[2020-02-14] MEDS ORDERED: DIFLUCAN150 MG PO (10:49)
[2020-02-14 12:00] LABS: ANION GAP 13 (6-22 (CALC)); BUN 9 mg/dL (7-17); BUN/CREATININE RATIO 27 (12-20 (CALC)); CARBON DIOXIDE 20 mmol/l (22-30); CHLORIDE 106 mmol/l (95-108); CREATININE 0.3 mg/dL (0.5-1.0); GFR > 60 ML/MIN (>=60 (CALC)); GFR FOR AFR.AMER. > 60 ML/MIN (>=60 (CALC)); POTASSIUM 4.4 mmol/l (3.5-5.1); SODIUM 135 mmol/l (137-146)
[2020-02-14 12:09] LABS: HEMATOCRIT 39.5 % (37.0-47.0); HEMOGLOBIN 13.7 g/dl (12.0-16.0); IMMATURE GRANULOCYTES 1.4 % (0.0-5.0); MEAN CELL VOLUME 84.6 fL CALC (80.0-100.0); MEAN CORPUSCULAR HGB 29.3 pG CALC (26.0-32.0); MEAN CORPUSCULAR HGB CONC 34.7 g/dL CAL (32.0-36.0); NEUT# 2.7 thou/uL (2.00-7.15); RED BLOOD COUNT 4.67 mill/uL (4.20-5.60); RED CELL DISTRI WIDTH 13.2 % (11.5-15.5)
[2020-02-14 13:08] VITALS: BP 182/88
== END 2020-02-14 13:21 | disposition home or self-care (01) | DRG 179 ==
LOC: ED 10:04
PROVIDERS: Family Medicine
DX: U07.1 COVID-19 (principal); R52 Pain, unspecified; R07.89 Other chest pain; E11.9 Type 2 diabetes mellitus without complications; I10 Essential (primary) hypertension; F32.9 Major depressive disorder, single episode, unspecified; F41.9 Anxiety disorder, unspecified; I71.4 Abdominal aortic aneurysm, without rupture; Z79.4 Long term (current) use of insulin

== ENCOUNTER 2020-02-16 13:23 | Emergency (ER) | payer OTHER ==
[~2020-02-16] VITALS: Ht 154.9 cm; Wt 90.0 kg
[~2020-02-16 13:23] MED LIST changes: +HUMULIN N100 UNIT/M SC
[2020-02-16 13:50] LABS: HEMATOCRIT 42.5 % (37.0-47.0); HEMOGLOBIN 14.2 g/dl (12.0-16.0); MEAN CELL VOLUME 84.8 fL CALC (80.0-100.0); MEAN CORPUSCULAR HGB 28.3 pG CALC (26.0-32.0); MEAN CORPUSCULAR HGB CONC 33.4 g/dL CAL (32.0-36.0); NEUT# 5.64 thou/uL (2.00-7.15); RED BLOOD COUNT 5.01 mill/uL (4.20-5.60); RED CELL DISTRI WIDTH 12.9 % (11.5-15.5)
[2020-02-16 14:02] LABS: ALKALINE PHOSPHATASE 154 u/l (38-126); BUN 9 mg/dL (7-17); BUN/CREATININE RATIO 21 (12-20 (CALC)); CARBON DIOXIDE 23 mmol/l (22-30); CHLORIDE 103 mmol/l (95-108); CREATININE 0.4 mg/dL (0.5-1.0); GFR > 60 ML/MIN (>=60 (CALC)); GFR FOR AFR.AMER. > 60 ML/MIN (>=60 (CALC)); SGOT/AST 28 u/l (14-36); SODIUM 135 mmol/l (137-146)
[2020-02-16 14:04] LABS: ALBUMIN 3.8 g/dL (3.2-5.0); ANION GAP 13 (6-22 (CALC)); D-DIMER 0.28 mg/L (0.19-0.60); POTASSIUM 3.5 mmol/l (3.5-5.1); TOTAL PROTEIN 8.2 g/dL (6.3-8.2)
[2020-02-16 14:15] LABS: INTERNATIONAL NORMALIZED RATIO 0.9 RATIO (0.7-1.3); PROTHROMBIN TIME 9.3 SECONDS (9.0-12.5)
[2020-02-16] MEDS ORDERED: ZITHROMAX250 MG PO (16:29)
[2020-02-16] MEDS ORDERED: MEDDOSEPAK PO (16:29)
[2020-02-16 16:35] VITALS: BP 144/76
== END 2020-02-16 16:52 | disposition home or self-care (01) | DRG 177 ==
LOC: ED 13:23
DX: U07.1 COVID-19 (principal); J12.82 Pneumonia due to coronavirus disease 2019; R04.2 Hemoptysis; E11.9 Type 2 diabetes mellitus without complications; I10 Essential (primary) hypertension; F32.9 Major depressive disorder, single episode, unspecified; F41.9 Anxiety disorder, unspecified; I71.4 Abdominal aortic aneurysm, without rupture; Z85.038 Personal history of other malignant neoplasm of large intestine; Z86.14 Personal history of Methicillin resistant Staphylococcus aureus infection; Z79.4 Long term (current) use of insulin

== ENCOUNTER 2020-08-13 16:52 | Emergency (ER) | payer OTHER ==
[~2020-08-13] VITALS: Ht 154.9 cm; Wt 90.0 kg
[~2020-08-13 16:52] MED LIST changes: +MEDDOSEPAK PO; +MIRALAX17 GM PO; -MIRALAX3350 N1 PO; +ZITHROMAX250 MG PO
[2020-08-13] MEDS ORDERED: ULTRAM50 M1 PO (18:07)
[2020-08-13] MEDS ORDERED: BACTROBAN TOP (18:07)
[2020-08-13 18:21] VITALS: BP 143/93
== END 2020-08-13 18:21 | disposition home or self-care (01) | DRG 603 ==
LOC: ED 16:52
DX: L02.11 Cutaneous abscess of neck (principal); E11.9 Type 2 diabetes mellitus without complications; I10 Essential (primary) hypertension; F32.9 Major depressive disorder, single episode, unspecified; F41.9 Anxiety disorder, unspecified; E78.00 Pure hypercholesterolemia, unspecified; Z86.14 Personal history of Methicillin resistant Staphylococcus aureus infection; Z79.4 Long term (current) use of insulin

== ENCOUNTER 2020-09-29 04:05 | Inpatient (IN) | payer OTHER ==
[~2020-09-29] VITALS: Ht 154.9 cm; Wt 97.5 kg
[~2020-09-29 04:05] MED LIST changes: +BACTROBAN TOP
--- NOTE | 2020-09-29 04:08 | NUR ---
PT TO ER BED 12 FOR TRIAGE WITH AN EVEN AND STEADY GAIT.
--- NOTE | 2020-09-29 04:34 | NUR ---
Reassessment of patient completed.
[2020-09-29 05:21] LABS: HEMATOCRIT 38.1 % (37.0-47.0); IMMATURE GRANULOCYTES 0.3 % (0.0-5.0); MEAN CELL VOLUME 85.8 fL CALC (80.0-100.0); MEAN CORPUSCULAR HGB 38.1 pG CALC (26.0-32.0); NEUT# 7.63 thou/uL (2.00-7.15); RED BLOOD COUNT 4.44 mill/uL (4.20-5.60); RED CELL DISTRI WIDTH 13.3 % (11.5-15.5)
[2020-09-29 05:22] LABS: URINE BILIRUBIN - DIPSTICK NEGATIVE (NEGATIVE); URINE BLOOD DIPSTICK NEGATIVE (NEGATIVE); URINE COLOR YELLOW; URINE GLUCOSE - DIPSTICK >=1000 mg/dL (NEGATIVE); URINE KETONE 40 mg/dL (NEGATIVE); URINE LEUK ESTERASE NEGATIVE (NEGATIVE); URINE PH 6.5 (4.5-8.0); URINE PROTEIN - DIPSTICK NEGATIVE (NEG-TRACE); URINE SPECIFIC GRAVITY 1.015; URINE UROBILINOGEN - DIPSTICK 0.2 E.U./dL (0.2)
[2020-09-29 05:24] LABS: URINE NITRITE - DIPSTICK NEGATIVE (Negative)
[2020-09-29 05:37] LABS: ALBUMIN 3.4 g/dL (3.2-5.0); ALKALINE PHOSPHATASE 113 u/l (38-126); AMYLASE 54 u/l (30-110); BILIRUBIN, TOTAL 0.6 mg/dL (0.0-1.4); BUN 10 mg/dL (7-17); BUN/CREATININE RATIO 31 (12-20 (CALC)); CHLORIDE 98 mmol/l (95-108); CREATININE 0.3 mg/dL (0.5-1.0); GFR > 60 ML/MIN (>=60 (CALC)); GFR FOR AFR.AMER. > 60 ML/MIN (>=60 (CALC)); LIPASE 858 u/l (23-300); MAGNESIUM 1.3 mg/dL (1.6-2.3); POTASSIUM 4.2 mmol/l (3.5-5.1); SGOT/AST 20 u/l (14-36); SODIUM 130 mmol/l (137-146); TOTAL PROTEIN 7.3 g/dL (6.3-8.2)
[2020-09-29 05:40] LABS: ANION GAP 18 (6-22 (CALC)); CARBON DIOXIDE 18 mmol/l (22-30)
[2020-09-29 05:45] LABS: HEMOGLOBIN 15.1 g/dl (12.0-16.0); MEAN CORPUSCULAR HGB CONC 39.4 g/dL CAL (32.0-36.0); MYOGLOBIN 14 ng/mL (0 - 62)
[2020-09-29 05:51] LABS: TOTAL CHOLESTEROL 553 mg/dl (0-199)
--- NOTE | 2020-09-29 05:52 | NUR ---
Reassessment of patient completed. No distress noted.
[2020-09-29 06:11] LABS: CHOLESTEROL HDL RATIO 12.6 (<4.4 (CALC)); HDL CHOLESTEROL 44 mg/dL (>=40); TOTAL TRIGLYCERIDES > 4200 mg/dl (30-149)
--- NOTE | 2020-09-29 06:45 | NUR ---
REPORT GIVEN TO LISHA MORALES.
--- NOTE | 2020-09-29 06:50 | NUR ---
REPORT RECEIVED FROM ISELA MORALES.
--- NOTE | 2020-09-29 06:55 | NUR ---
REPEAT ACCUCHECK OF 322 NOTED INSULIN GTT INCREASED PER PROTOCOL. PT REPORTS INCREASED PAIN LEVEL. DR STEVENS NOTIFIED.
--- NOTE | 2020-09-29 07:00 | NUR ---
INSULIN GTT INTIATED PER MD ORDER FOR GLUCOSE AND TRIGLYCERIDES ELEVATION. PT REPORTS HX OF DM. PT TOLERATING DRIP W/O DIFF. DISCUSSED CONT WAIT TIME FOR RESULTS. VERBALIZED UNDERSTANDING. DENIES ANY NEEDS. MONTIOR IN PLACE.
--- NOTE | 2020-09-29 07:55 | NUR ---
REPEAT ACCUCHECK OBTAINED OF 322, INSULIN GTT INTIATED PER PROTOCOL.
[2020-09-29] MEDS ORDERED: GLYBURIDE5 M1 PO (08:02)
[2020-09-29] MEDS ORDERED: METFORMIN HCL500 M2 PO (08:02)
--- NOTE | 2020-09-29 08:17 | NUR ---
PT MEDICATED FOR PAIN PER ORDER, TOLERATED WELL. D5NS INITIATED. NIRANJAN STEVENS BEDSIDE SPEAKING WITH PT AND PLAN FOR ADMISISON TO HOSPITAL. PT VERBALIZED UNDERSTANDING. DENIES ANY NEEDS. CALL LIGHT WITHIN REACH.
[2020-09-29] MEDS ORDERED: GABAPENTIN300 M2 PO (09:02)
[2020-09-29] MEDS ORDERED: GLIPIZIDE ER2.5 MG PO (09:03)
[2020-09-29] MEDS ORDERED: FLUCONAZOLE150 MG PO (09:04)
[2020-09-29] MEDS ORDERED: NAPROXEN500 MG PO (09:05)
--- NOTE | 2020-09-29 10:27 | NUR ---
CHANGED INSULIN GTT TO 4U/HR DUE TO 306 BG
--- NOTE | 2020-09-29 11:36 | NUR ---
PT INSULIN GTT LOWERED TO 3U/HR PER PROTOCOL FOR BG 266
--- NOTE | 2020-09-29 13:17 | NUR ---
GTT STABLE 296 BG, CONTINUE 3U/HR
--- NOTE | 2020-09-29 14:35 | NUR ---
GTT OF INSULIN STAYS A 3U/HR PER PROTOCOL BG OF226
--- NOTE | 2020-09-29 16:00 | NUR ---
206 BG , INSULIN GTT TO STAY AT 3U/HR PER PROTOCOL
--- NOTE | 2020-09-29 17:25 | NUR ---
BG 195, GTT LOWERED TO 2U/HR
--- NOTE | 2020-09-29 18:36 | NUR ---
INSULIN GTT WILL STAY 2U/HR
--- NOTE | 2020-09-29 21:30 | NUR ---
BG 265, 3U/HR
--- NOTE | 2020-09-29 21:56 | NUR ---
RECIEVED REPORT FROM BULL MORALES, ASSUMED CARE OF PATIENT.
--- NOTE | 2020-09-29 22:54 | NUR ---
Reassessment of patient completed. GLUCOSE CHECKED, INSULIN DRIP STAYS AT SAME DOSE, NO INCREASE OR DECREASE. PT GIVEN ICE CHIPS. REPOSTIONED, UP TO BR, RETURNED TO BED AND GOWN CHANGED. PT APPEARS COMFORTABLE AND IN NO DISTRESS.
--- NOTE | 2020-09-29 23:39 | NUR ---
GLUCOSE CHECK, PT ALERT, ORIENTED. NO CHANGE IN INSULIN DRIP INDICATED.
--- NOTE | 2020-09-30 00:36 | NUR ---
GLUCOSE CHECKED, 205, NO CHANGE TO INSULIN DRIP RATE.
--- NOTE | 2020-09-30 01:35 | NUR ---
GLUCOSE CHECK DONE, 202, NO CHANGE IN INSULIN DRIP RATE. PT REQUESTING PAIN MEDICATION.
--- NOTE | 2020-09-30 02:35 | NUR ---
PT SLEEPING SOUNDLY UPON ENTERING ROOM. PT AWAKENED FOR GLUCOSE CHECK. GLUCOSE 218, NO CHANGE IN DRIP INDICATED AT THIS TIME. NEW MAINTENANCE FLUID STARTED.
--- NOTE | 2020-09-30 03:54 | NUR ---
GLUCOSE CHECK, 205, NO CHANGE IN INSULIN DRIP PER PROTOCOL.
--- NOTE | 2020-09-30 04:41 | NUR ---
GLUCOSE CHECK, 200, INSULIN DOSE CHANGED TO 2 UNITS/HOUR PER DM PROTOCOL.
[2020-09-30 05:32] LABS: ALBUMIN 2.8 g/dL (3.2-5.0); ALKALINE PHOSPHATASE 78 u/l (38-126); AMYLASE 57 u/l (30-110); BILIRUBIN, TOTAL 0.5 mg/dL (0.0-1.4); BUN 4 mg/dL (7-17); BUN/CREATININE RATIO 15 (12-20 (CALC)); CHLORIDE 102 mmol/l (95-108); CREATININE 0.3 mg/dL (0.5-1.0); GFR > 60 ML/MIN (>=60 (CALC)); GFR FOR AFR.AMER. > 60 ML/MIN (>=60 (CALC)); HDL CHOLESTEROL 21 mg/dL (>=40); LIPASE 454 u/l (23-300); POTASSIUM 3.9 mmol/l (3.5-5.1); SGOT/AST 25 u/l (14-36); SODIUM 130 mmol/l (137-146)
[2020-09-30 05:33] LABS: ANION GAP 8 (6-22 (CALC)); CARBON DIOXIDE 24 mmol/l (22-30); CHOLESTEROL HDL RATIO 12.9 (<4.4 (CALC)); MAGNESIUM 1.8 mg/dL (1.6-2.3); TOTAL CHOLESTEROL 271 mg/dl (0-199)
--- NOTE | 2020-09-30 05:40 | NUR ---
GLUCOSE CHECK, 191, INSULIN DRIP TO STAY AT 2 UNITS/HOUR.
[2020-09-30 05:59] LABS: TOTAL TRIGLYCERIDES 1760 mg/dl (30-149)
--- NOTE | 2020-09-30 07:54 | NUR ---
GLUCOSE CHECK DONE, 185, INSULIN DRIP WILL REMAIN AT 2UNITS/HOUR. PT UP TO BR. REPOSITIONED.
[2020-09-30 08:00] VITALS: BP 118/76
--- NOTE | 2020-09-30 08:00 | NUR ---
REPORT RECEIVED FROM CARMEN WEISS.
--- NOTE | 2020-09-30 08:15 | NUR ---
PT STABLE ON MONITOR. IV MEDS INFUSING WITHOUT DIFFICULTY. CALL LIGHT WITHIN REACH. NO CONCERNS VOICED.
--- NOTE | 2020-09-30 09:15 | NUR ---
MEDICATED WITH DILAUDID 1MG IVP FOR C/O 10 ABD PAIN.
--- NOTE | 2020-09-30 11:30 | NUR ---
RECEIVED REPORT FROM NELA.
[2020-09-30 12:00] VITALS: BP 120/79
--- NOTE | 2020-09-30 12:03 | NUR ---
DR SIERRA AT BEDSIDE, ORDER TO INCREASE INSULIN TO 9 UNITS/HR. CONTINUE Q1HOUR ACCU CHECKS. CALL IF LESS THAN 100 FOR FURTHER ORDERS.
--- NOTE | 2020-09-30 14:05 | NUR ---
BS 224
--- NOTE | 2020-09-30 15:05 | NUR ---
PATIENT RESTING, BS 222. NO DISTRESS. WCTM CLOSELY.
--- NOTE | 2020-09-30 16:05 | NUR ---
BS 210. PATIENT RESTING,E YES CLOSED. NO DISTRESS OR COMPLAINTS. CONTINUING TO MONITOR CLOSELY.
--- NOTE | 2020-09-30 17:05 | NUR ---
BS 214, NO DISTRESS. MONITORING CLOSELY
--- NOTE | 2020-09-30 18:05 | NUR ---
BS 132
--- NOTE | 2020-09-30 18:52 | NUR ---
REPORT TO GABI, RN
--- NOTE | 2020-09-30 19:17 | NUR ---
W/P/D SKIN SR NO ST T CHANGES NO ECTOPY NO C/O PAIN OF ANY SOURCE.
--- NOTE | 2020-09-30 20:30 | NUR ---
PT MEDICATED FOR LO ABD PAIN 8 ON SCAle no n/v
--- NOTE | 2020-09-30 21:08 | NUR ---
PAIN IS NOW RATED AT 0 ON SCALE W/P/D SKIN
--- NOTE | 2020-09-30 22:03 | NUR ---
IV D5LR 125/HR LAC INSULIN DRIP 1U/CC AT 9U/HR LFA NO C/O PAIN NO NAUSEA
--- NOTE | 2020-09-30 23:31 | NUR ---
IV INSULIN DRIP RATE REDUCED TO 5U/HR PER V/O DR NEWELL.D5LR RATE INCREASED TO 200CC/HR
--- NOTE | 2020-10-01 00:14 | NUR ---
REMAINS PAINFREE NO N/V W/P/D SKIN SR NO ECTOPY.
--- NOTE | 2020-10-01 01:27 | NUR ---
PT IS AWAQKE BUT NOT IN PAIN NO N/V W/P/D SKIN NO SWEATS ACCU CK 139
--- NOTE | 2020-10-01 02:50 | NUR ---
W/P/D SKIN NO C/O ABD PAIN IV ACCU CK 150.IV INSULIN DRIP RATE INCREASED TO 7U/HR
--- NOTE | 2020-10-01 03:42 | NUR ---
accu ck 154 iv insulin rate increased to 9u/hr w/p/d skin no c/o pain no nausea
--- NOTE | 2020-10-01 04:00 | NUR ---
D10 IVF INCREASED TO 100ML/H
--- NOTE | 2020-10-01 04:40 | NUR ---
MEDICATED FOR RECURRENT ABD PAIN W/P/D SKIN NO SWEATS NO NAUSEA
[2020-10-01 06:16] LABS: HEMATOCRIT 32.9 % (37.0-47.0); MEAN CORPUSCULAR HGB 29.4 pG CALC (26.0-32.0); MEAN CORPUSCULAR HGB CONC 33.7 g/dL CAL (32.0-36.0); RED BLOOD COUNT 3.78 mill/uL (4.20-5.60); RED CELL DISTRI WIDTH 13.7 % (11.5-15.5)
[2020-10-01 06:27] LABS: HEMOGLOBIN 11.1 g/dl (12.0-16.0)
[2020-10-01 06:31] LABS: ANION GAP 8 (6-22 (CALC)); BUN 7 mg/dL (7-17); BUN/CREATININE RATIO 21 (12-20 (CALC)); CARBON DIOXIDE 25 mmol/l (22-30); CHLORIDE 103 mmol/l (95-108); CREATININE 0.4 mg/dL (0.5-1.0); GFR > 60 ML/MIN (>=60 (CALC)); GFR FOR AFR.AMER. > 60 ML/MIN (>=60 (CALC)); POTASSIUM 3.4 mmol/l (3.5-5.1); SODIUM 133 mmol/l (137-146)
--- NOTE | 2020-10-01 07:03 | NUR ---
PT REPORT TO NURSE ABY
--- NOTE | 2020-10-01 08:22 | NUR ---
PATIENT ASSISTED TO RESTROOM
--- NOTE | 2020-10-01 12:38 | NUR ---
BLOOD SUGAR, 96, JOLLY AND DR NEWELL MADE AWARE.
--- NOTE | 2020-10-01 13:20 | NUR ---
PATIENT AMBULATED TO THE BATHROOM, STEADY GAIT.
--- NOTE | 2020-10-01 14:03 | NUR ---
IVF TITRATED DOWN TO 100ML/HR. INSULIN DRIP REMAINS AT 9U/HR. BS 1193 ON ACCU CHECK.
--- NOTE | 2020-10-01 15:00 | NUR ---
PATIENT OFFERED COMFORT MEASURES. STATES SHE IS FEELING RESTLESS AND WANTS TO LEAVE AMA
--- NOTE | 2020-10-01 16:20 | NUR ---
Reassessment of patient completed. No distress noted. PATIENT DENIES ANY FURTHER NEEDS AT THIS TIME.
--- NOTE | 2020-10-01 19:15 | NUR ---
REPORT TO ANA Bhandari RN
--- NOTE | 2020-10-01 19:50 | NUR ---
D10 IVF RATE CHANGED TO 50ML/H FROM 75ML/H
[2020-10-01 19:55] VITALS: BP 177/91
[2020-10-01 20:55] VITALS: BP 168/95
[2020-10-01 21:55] VITALS: BP 182/91
[2020-10-01 22:55] VITALS: BP 174/91
--- NOTE | 2020-10-01 23:40 | NUR ---
BLOOD GLUCOSE 72. PT C/O FEELING SWEATY AND A GENERAL FEELING OF "NOT FEELING WELL." 240 ML JUICE AND 1/2 TURKEY SANDWICH GIVE. IVF INCREASED TO 75ML.
[2020-10-01 23:55] VITALS: BP 124/77
[2020-10-02 01:08] VITALS: BP 109/59
[2020-10-02 01:55] VITALS: BP 124/69
--- NOTE | 2020-10-02 05:00 | NUR ---
D10 IVF INCREASED TO 150ML/H
[2020-10-02 05:51] LABS: ANION GAP 10 (6-22 (CALC)); BUN 8 mg/dL (7-17); BUN/CREATININE RATIO 18 (12-20 (CALC)); CARBON DIOXIDE 25 mmol/l (22-30); CHLORIDE 103 mmol/l (95-108); CREATININE 0.4 mg/dL (0.5-1.0); GFR > 60 ML/MIN (>=60 (CALC)); GFR FOR AFR.AMER. > 60 ML/MIN (>=60 (CALC)); POTASSIUM 3.7 mmol/l (3.5-5.1); SODIUM 134 mmol/l (137-146)
[2020-10-02 05:55] LABS: HEMATOCRIT 34.9 % (37.0-47.0); HEMOGLOBIN 11.6 g/dl (12.0-16.0); MEAN CELL VOLUME 87.9 fL CALC (80.0-100.0); MEAN CORPUSCULAR HGB 29.2 pG CALC (26.0-32.0); MEAN CORPUSCULAR HGB CONC 33.2 g/dL CAL (32.0-36.0); RED BLOOD COUNT 3.97 mill/uL (4.20-5.60); RED CELL DISTRI WIDTH 13.6 % (11.5-15.5)
--- NOTE | 2020-10-02 07:00 | NUR ---
PT IS COMFORTABLE ON INSULIN GTT AT 9U/HR.
--- NOTE | 2020-10-02 12:12 | NUR ---
PT RESTING IN BED, INSULIN GTT AND D10 INFUSING.
--- NOTE | 2020-10-02 13:41 | NUR ---
PT TOOK BED BATH AND CHANGED HER LINEN
--- NOTE | 2020-10-02 15:30 | NUR ---
STOPPED THE INSULIN GTT PER MD LOUIS
--- NOTE | 2020-10-02 16:32 | NUR ---
PT AWAITING TO GO TO THE FLOOR, AOX WITH NO COMPLAINTS
--- NOTE | 2020-10-02 16:57 | NUR ---
REPORT CALLED TO ELAN IN MED SURG
--- NOTE | 2020-10-02 17:10 | NUR ---
PT ARRIVED FROM ER, REPORT GIVEN PER ERIK. PT ARRIVED WITH ELEVATED BP. MD NOTIFIED. PT HASNO C/O OF PAIN/DISTRESS AT THIS TIME. LYING IN BED, FALL PRECATIONS IN PLACE. CALL LIGHT IN HAND.
[2020-10-02 17:28] VITALS: BP 181/85
--- NOTE | 2020-10-02 17:35 | NUR ---
PT BP ELEVATED. NOTIFIED, AWAITING NEW ORDERS.
[2020-10-02 18:49] VITALS: BP 163/94
--- NOTE | 2020-10-02 18:56 | NUR ---
PTLYING IN BED WATCHING TV, NO DISTRESS OR COMPLAINTS NOTED. BP STILL INCREASED AFTER PRN MEDICATION GIVEN. PT DUE FOR REGULAR MEDICATIONS SHORTLY.
[2020-10-02 19:00] VITALS: BP 173/86
--- NOTE | 2020-10-02 19:30 | NUR ---
REPORT RECEIVED FROM Jelani HEAD LPN AND Jelani RYAN RN.
--- NOTE | 2020-10-02 21:10 | NUR ---
PATIENT ASSEMENT COMPLETED AT THIS TIME. NORMAL HEART SOUNDS, CLEAR BREATH SOUNDS. #20 IN LEFT ARM AND #20 IN LEFT AC. BOTH FLUSHED AND PATENT. HEALTHY SITES. PLAN OF CARE REVIEWED WITH PATIENT. [facility] AND ASKED TO CALL IF SHE NEEDS ANYTHING. BEDSIDE TABLE AND CALL LIGHT WITHIN REACH.
[2020-10-03] VITALS: BP 139/79
[2020-10-03 04:00] VITALS: BP 130/73
--- NOTE | 2020-10-03 04:35 | NUR ---
PATIENT SLEEPING, AWOKEN BY SOUND OF DOOR OPENING, DENIES ANY NEEDS AT THIS TIME. BEDSIDE TABLE AND CALL LIGHT WITHIN REACH
[2020-10-03 05:24] LABS: HEMATOCRIT 35.3 % (37.0-47.0); HEMOGLOBIN 11.8 g/dl (12.0-16.0); MEAN CELL VOLUME 87.2 fL CALC (80.0-100.0); MEAN CORPUSCULAR HGB 29.1 pG CALC (26.0-32.0); MEAN CORPUSCULAR HGB CONC 33.4 g/dL CAL (32.0-36.0); RED BLOOD COUNT 4.05 mill/uL (4.20-5.60); RED CELL DISTRI WIDTH 13.4 % (11.5-15.5)
[2020-10-03 05:44] LABS: ANION GAP 10 (6-22 (CALC)); BUN 9 mg/dL (7-17); BUN/CREATININE RATIO 23 (12-20 (CALC)); CARBON DIOXIDE 25 mmol/l (22-30); CHLORIDE 101 mmol/l (95-108); CREATININE 0.4 mg/dL (0.5-1.0); GFR > 60 ML/MIN (>=60 (CALC)); GFR FOR AFR.AMER. > 60 ML/MIN (>=60 (CALC)); MAGNESIUM 1.6 mg/dL (1.6-2.3); POTASSIUM 4.3 mmol/l (3.5-5.1); SODIUM 132 mmol/l (137-146)
[2020-10-03 08:00] VITALS: BP 147/80
[2020-10-03] MEDS ORDERED: HUMULIN 70/30 K1 INJ SC (14:21)
[2020-10-03 15:05] VITALS: BP 167/85
--- NOTE | 2020-10-03 16:37 | NUR ---
PT ESCORTED BY BRAD VIA WC
== END 2020-10-03 15:40 | disposition home or self-care (01) | DRG 439 ==
LOC: ED 04:05 → ED-I 08:08 → ED 08:25 → ED-I 08:26 → MS2 10-02 15:19
PROVIDERS: Family Medicine; Hospitalist; Nurse Practitioner; ADMIT Internal Medicine; ATTEND Internal Medicine
DX: K85.80 Other acute pancreatitis without necrosis or infection (principal); E87.1 Hypo-osmolality and hyponatremia; E78.1 Pure hyperglyceridemia; I10 Essential (primary) hypertension; E11.65 Type 2 diabetes mellitus with hyperglycemia; F41.1 Generalized anxiety disorder; F32.9 Major depressive disorder, single episode, unspecified; Z86.16 Personal history of COVID-19; Z85.038 Personal history of other malignant neoplasm of large intestine; Z79.84 Long term (current) use of oral hypoglycemic drugs; Z20.822 Contact with and (suspected) exposure to COVID-19
CPT/HCPCS: J1650; J3475; Q9967

== ENCOUNTER 2021-09-19 20:02 | Emergency (ER) | payer OTHER ==
[~2021-09-19] VITALS: Ht 154.9 cm; Wt 98.0 kg
[~2021-09-19 20:02] MED LIST changes: +FLUCONAZOLE150 MG PO; +GABAPENTIN300 M2 PO; +GLIPIZIDE ER2.5 MG PO; +GLYBURIDE5 M1 PO; +HUMULIN 70/30 K1 INJ SC; +METFORMIN HCL500 M2 PO; +NAPROXEN500 MG PO
[2021-09-19 20:53] VITALS: BP 135/71
[2021-09-19 21:01] VITALS: BP 132/65
[2021-09-19 21:16] VITALS: BP 112/53
[2021-09-19] MEDS ORDERED: JARDIANCE10 MG (21:19)
[2021-09-19] MEDS ORDERED: BUPROPION150 M3 PO (21:19)
[2021-09-19 21:20] LABS: HEMATOCRIT 40.3 % (37.0-47.0); HEMOGLOBIN 13.8 g/dl (12.0-16.0); IMMATURE GRANULOCYTES 0.7 % (0.0-5.0); MEAN CELL VOLUME 89.2 fL CALC (80.0-100.0); MEAN CORPUSCULAR HGB 30.5 pG CALC (26.0-32.0); MEAN CORPUSCULAR HGB CONC 34.2 g/dL CAL (32.0-36.0); NEUT# 5.62 thou/uL (2.00-7.15); RED BLOOD COUNT 4.52 mill/uL (4.20-5.60); RED CELL DISTRI WIDTH 13.4 % (11.5-15.5)
[2021-09-19 21:30] LABS: ALKALINE PHOSPHATASE 87 u/l (38-126); BILIRUBIN, TOTAL 0.4 mg/dL (0.0-1.4); BUN 13 mg/dL (7-17); BUN/CREATININE RATIO 21 (12-20 (CALC)); CARBON DIOXIDE 25 mmol/l (22-30); CHLORIDE 105 mmol/l (95-108); CREATININE 0.6 mg/dL (0.5-1.0); GFR FOR AFR.AMER. > 60 ML/MIN (>=60 (CALC)); GFR OTHER RACES > 60 ML/MIN (>=60 (CALC)); SGOT/AST 22 u/l (14-36)
[2021-09-19 21:31] VITALS: BP 132/67
[2021-09-19 21:31] LABS: ALBUMIN 3.9 g/dL (3.2-5.0); ANION GAP 14 (6-22 (CALC)); SODIUM 140 mmol/l (137-146); TOTAL PROTEIN 7.4 g/dL (6.3-8.2)
[2021-09-19] MEDS ORDERED: COMBIVIR 1501 COMBO PO (21:47)
[2021-09-19] MEDS ORDERED: ISENTRESS100 MG PO (21:55)
[2021-09-19 22:04] VITALS: BP 132/67
[2021-09-20] MEDS ORDERED: ISENTRESS100 MG PO (13:36)
== END 2021-09-19 22:26 | disposition home or self-care (01) | DRG 951 ==
LOC: ED 20:02
PROVIDERS: Emergency Medicine
DX: Z20.6 Contact with and (suspected) exposure to human immunodeficiency virus [HIV] (principal); I10 Essential (primary) hypertension; E11.9 Type 2 diabetes mellitus without complications; I71.4 Abdominal aortic aneurysm, without rupture; E78.5 Hyperlipidemia, unspecified; Y93.F9 Activity, other caregiving; Y92.239 Unspecified place in hospital as the place of occurrence of the external cause; Y99.0 Civilian activity done for income or pay; Z79.84 Long term (current) use of oral hypoglycemic drugs